=== PATIENT | male | born 1960 | race Two or more races ===

== ENCOUNTER 2016-12-18 07:12 | Emergency (ER) | payer MEDICAID ==
[~2016-12-18] VITALS: Ht 177.8 cm; Wt 100.2 kg
--- NOTE | 2016-12-18 07:15 | NUR ---
PATIENT BIB [facility] C/O UPPER ABDOMINAL PAIN X 2 HOURS. PATIENT IS A/XO 4. BREATHING EVEN AND UNLABORED. NO SOB. VITALS STABLE. SAFETY AND COMFORT MEASURES IN PLACE. AWAITING MD ORDERS.
[2016-12-18] MEDS ORDERED: MORPHINE SULFATE INJ 2 MG/ML DISP.SYRIN ONE (07:24)
[2016-12-18] MEDS ORDERED: MORPHINE SULFATE INJ 4 MG/ML DISP.SYRIN ONE ×2 (07:24→08:02)
[2016-12-18] MEDS ORDERED: IV NS 0.9% 500 ML BAG IV ONE (07:30)
[2016-12-18] MEDS ORDERED: MORPHINE SULFATE INJ 2 MG/ML DISP.SYRIN IV ONE ×2 (07:30→08:00)
--- NOTE | 2016-12-18 07:40 | NUR ---
NEW IV STARTED ON RAC, 18 G. BLOOD DRAWN AND SENT TO LAB. PATIENT MEDICATED PER MD ORDERS.
[2016-12-18 07:51] LABS: BASOPHILS % (AUTO) 0.5 % (0.0-2.0); EOSINOPHILS # (AUTO) 0.2 /CMM (0.0-0.7); HEMATOCRIT 48 % (39-51); HEMOGLOBIN 16.3 g/dL (13.5-17.5); LYMPHOCYTES # (AUTO) 2.5 /CMM (0.8-4.8); LYMPHOCYTES % (AUTO) 38.9 % (20.0-44.0); MEAN CORPUSCULAR HEMOGLOBIN 28 PG (26.0-33.0); MEAN CORPUSCULAR HGB CONC 34 g/dl (31.0-36.0); MEAN CORPUSCULAR VOLUME 83 fL (80-96); MONOCYTES # (AUTO) 0.5 /CMM (0.1-1.30); MONOCYTES % (AUTO) 8.2 % (2.0-12.0); NEUTROPHILS # (AUTO) 3.2 /CMM (1.8-8.9); NEUTROPHILS % (AUTO) 49.4 % (43.0-81.0); PLATELET COUNT (AUTO) 205 /CMM (150-450); RDW COEFFICIENT OF VARIATION 13.6 (11.5-15.0); WHITE BLOOD COUNT (AUTO) 6.5 K/uL (4.3-11.0)
[2016-12-18 08:00] LABS: CALCIUM, SERUM 8.6 mg/dL (8.5-10.1); CARBON DIOXIDE 29 mmol/L (21-32); CHLORIDE 105 mmol/L (98-107); GLUCOSE 168 mg/dL (74-106); POTASSIUM 2.9 mmol/L (3.5-5.1); SODIUM SERUM 143 mmol/L (136-145); UREA NITROGEN, BLOOD 15 mg/dL (7-18)
[2016-12-18] MEDS ORDERED: MAG HYDROX/AL HYDROX/SIMETH 30 ML UDC PO ONE (08:00)
[2016-12-18] MEDS ORDERED: FAMOTIDINE/PF INJ 20 MG/2 ML VIAL IV ONE ×2 (08:00→08:02)
[2016-12-18] MEDS ORDERED: MAG HYDROX/AL HYDROX/SIMETH 30 ML UDC ONE (08:02)
--- NOTE | 2016-12-18 08:02 | NUR ---
PATIENT STILL C/O SEVERE PAIN, STATING PAIN MEDICINE NOT HELPING. MD INFORMED, NEW ORDERS PROVIDED. WILL IMPLEMENT.
[2016-12-18 08:07] LABS: ALANINE AMINOTRANSFERASE 21 U/L (12-78); ALBUMIN 3.6 g/dL (3.4-5.0); ALKALINE PHOSPHATASE 103 U/L (46-116); ASPARTATE AMINOTRANSFERASE 12 U/L (15-37); BILIRUBIN,DIRECT 0.1 mg/dL (0.0-0.2); BILIRUBIN,TOTAL 0.3 mg/dL (0.2-1.0); LIPASE 228 U/L (73-393); TOTAL PROTEIN, SERUM 7.4 g/dL (6.4-8.2)
[2016-12-18 08:08] LABS: TROPONIN I < 0.017 ng/mL (0.00-0.056)
[2016-12-18] MEDS ORDERED: POTASSIUM CHLORIDE 20 MEQ TAB.PRT.SR PO ONE ×2 (08:09→08:30)
--- NOTE | 2016-12-18 08:39 | NUR ---
ELECTRIC ARC WELDER AT BEDSIDE.
--- NOTE | 2016-12-18 08:59 | NUR ---
LAMP INSPECTOR AT BEDSIDE
--- NOTE | 2016-12-18 09:01 | NUR ---
US TECH AT BEDSIDE.
[2016-12-18] MEDS ORDERED: SIMETHICONE 80 MG TAB.CHEW PO ONE ×2 (10:00→10:30)
[2016-12-18] MEDS ORDERED: SIMETHICONE 80 MG TAB.CHEW ONE (10:26)
[2016-12-18 11:46] VITALS: BP 136/86
--- NOTE | 2016-12-18 11:47 | NUR ---
Patient discharged to home in stable condition. IV removed. Catheter intact and site benign. Pressure and 4x4 applied to site. No bleeding noted. Prescription handed to patient. Written and verbal after care instructions given. Patient verbalizes understanding of instruction.
== END 2016-12-18 11:46 | disposition home or self-care (01) ==
LOC: ER 07:13
DX: R10.13 Epigastric pain (principal); I10 Essential (primary) hypertension
CPT/HCPCS: 36415; 71010-TC; 76705-TC; 80048-TC; 80076-TC; 83690-TC; 84484-TC; 85025-TC; A4606; J2270; J3490; J7040; Z7610